=== PATIENT | male | born 1970 | race Caucasian/White ===

== ENCOUNTER 2016-10-31 08:16 | Emergency (ER) | payer OTHER ==
[~2016-10-31] VITALS: Ht 172.7 cm; Wt 76.0 kg
[~2016-10-31 08:16] MED LIST: Z.0.NO CURRENT MEDS
[2016-10-31 08:19] VITALS: BP 116/76; PULSE 70; RESP 17; TEMP 97.7; O2SAT 97
--- NOTE | 2016-10-31 08:44 | PD ---
HPI Chief Complaint: Back/ Neck Pain or Injury Time Seen by Provider: 08:37 Travel History International Travel<30 days: No Contact w/Intl Traveler<30days: No Traveled to known affect area: No History of Present Illness HPI 46-year-old male with no significant past medical issues, presents to the ER today 5 days after he states that he was doing something at home and felt pain in his left lower back area as he was trying to get up, has been having pain in that area since then especially with movements. He denies any incontinence, fevers, leg numbness, weakness, or any difficulty walking. He states he has been using Motrin for this issue. He is here because he states that he just wants to get checked out and wanted to see if there is anything else he needs to be doing. Modifying Factors: None Associated Signs & Symptoms: Lower back pain, injury Risk Factors: None History Social History Alcohol Use: Yes (2X A MONTH) Tobacco Use: No Allergies-Medications (Allergen,Severity, Reaction): Coded Allergies: No Known Allergies (Verified Allergy, Mild, 01/26/07) Reported Meds & Prescriptions Reported Meds & Active Scripts Active Reported No Current Meds (Miscellaneous Medication) Misc Review of Systems Except as stated in HPI: all other systems reviewed are Neg Physical Exam Narrative GENERAL: Well-nourished, well-developed middle age white male patient in no acute distress. Awake, alert, oriented 3. Ambulatory without issues in the ER. SKIN: Warm and dry. HEAD: Normocephalic. NECK: Supple, trachea midline. CARDIOVASCULAR: Regular rate and rhythm without murmurs, gallops, or rubs. RESPIRATORY: Breath sounds equal bilaterally. No accessory muscle use. GASTROINTESTINAL: Abdomen soft, non-tender, nondistended. MUSCULOSKELETAL: No cyanosis, or edema. BACK: Mild left lumbar paraspinal diffuse tenderness without obvious deformity. No CVA tenderness. No saddle anesthesia. Data Data Last Documented VS Vital Signs Date Time Temp Pulse Resp B/P Pulse Ox O2 Delivery O2 Flow Rate FiO2 10/31/16 08:19 97.7 70 17 116/76 97 MDM Medical Screen Exam Complete: Yes Emergency Medical Condition: No Differential Diagnosis Lower back painback strain/muscle spasm Narrative Course Patient has no focal neurological symptoms, is ambulatory in the ER without issues. Normal straight leg raise test. At this point, I do not suspect acute issues. He likely has an underlying strain. He does not have an emergent condition and this point. He can follow-up with primary care physician for this issue. He has been taking ibuprofen which is appropriate. He should avoid heavy lifting and strenuous activity for the next week. He should return for any worsening in symptoms or new issues. A medical screening exam was done by me, patient is awake, alert, oriented 3, able to make his own decisions. He does not appear to have any acute medical issues at this time. I have offered to treat him with further prescriptions, and the patient states that he can follow-up with Dr. Markham at this time. He should return for any worsening in pain, new neurological symptoms, difficulty walking, or new issues as needed. It is a pleasure to take care of this gentleman at this time. All questions were answered at this time. He should return should he has any further issues. Patient states understanding. Primary Impression: STRAIN OF MUSCLE AND TENDON OF BACK WALL OF THORAX, INIT Disposition: [facility]-ED USE ONLY Condition: Stable Anabel Cardoza MD Oct 31, 2016 08:44
== END 2016-10-31 08:44 | disposition left against medical advice (07) ==
LOC: NEPE 08:16
DX: M54.5 Low back pain (principal)
CPT/HCPCS: 99281